=== PATIENT | female | born 1995 | race Caucasian/White ===

== ENCOUNTER 2020-03-04 14:44 | Emergency (ER) | payer OTHER ==
[~2020-03-04] VITALS: Ht 154.9 cm; Wt 61.2 kg
[2020-03-04 15:03] VITALS: BP 107/77
[2020-03-04] MEDS ORDERED: TETANUS,DIPTH,PERTUSS P/F (BOOSTRIX) 0.5 ML VIAL IM ONE (15:15)
[2020-03-04] MEDS ORDERED: LIDOCAINE 1% INJ 20 ML 20 ML VIAL INJ ONE (15:15)
--- NOTE | 2020-03-04 15:15 | ED Upper Extremity ---
General Chief Complaint: Laceration Stated Complaint: L HAND LACERATION Source: patient Exam Limitations: no limitations History of Present Illness Date Seen by Provider: Mar 04, 2020 Time Seen by Provider: 15:05 Initial Comments Patient is a 24-year-old female who presents to the emergency department today with a chief complaint of hand laceration. Patient states that she was using a steak knife and cut her left hand with it. Patient is right-hand dominant. patient had immediate pain and bleeding. She denies any loss of function to her hand. She has no complaints of any other injuries. Unknown last tetanus shot. Onset: just prior to arrival Pain/Injury Location: left hand Method of Injury: incised Allergies and Home Medications Allergies Coded Allergies: No Known Drug Allergies (Unverified , 03/04/20) Patient Home Medication List Home Medication List Reviewed: Yes Review of Systems Constitutional: no symptoms reported EENTM: no symptoms reported Respiratory: no symptoms reported Cardiovascular: no symptoms reported Gastrointestinal: no symptoms reported Musculoskeletal: no symptoms reported Skin: other (Laceration to left hand) Past Egvjckp-Xvxbsy-Lhgchn Hx Patient Social History Recent Foreign Travel: No Contact w/Someone Who Travel: No Physical Exam Vital Signs Vital Signs - First Documented 03/04/20 15:03 Pulse 96 Resp 16 B/P (MAP) 107/77 (87) Pulse Ox 99 O2 Delivery Room Air Capillary Refill : Height, Weight, BMI Height: '" Weight: lbs. oz. kg; BMI Method: General Appearance: WD/WN, no apparent distress Cardiovascular: regular rate, rhythm Respiratory: lungs clear, normal breath sounds Shoulder: normal inspection Elbow/Forearm: normal inspection Wrist: Yes normal inspection Hand: Left, laceration (3 cm superficial laceration at the base of the index finger with active bleeding noted) Neurologic/Psychiatric: voice over announcer II-XII nml as tested, no motor/sensory deficits, alert, normal mood/affect, oriented x 3 Skin: normal color, warm/dry Procedures/Interventions Wound Location: Upper Extremities (left hand) Wound Length (cm): 3 Wound's Depth, Shape: superficial Wound Explored: clean Irrigated w/ Saline (ccs): 10 Betadine Prep?: No Anesthesia: 1% Lidocaine Volume Anesthetic (ccs): 2 Suture: Prolene (5-0) Suture Size: 5-0 Other Closure Supply: Wound Adhesive Number of Sutures: 2 Sterile Dressing Applied?: Yes Progress/Results/Core Measures Results/Orders My Orders Orders - BINU VANG MD Lidocaine 1% Inj 20 Ml (Xylocaine 1% Inj (03/04/20 15:15) Dipht,Pertuss(Acell),Tet Adult (Boostrix (03/04/20 15:15) Medications Given in ED Current Medications Medications Dose Ordered Sig/Gómez Route Start Time Stop Time Status Last Admin Dose Admin Diphtheria/ Tetanus/Acell Pertussis 0.5 ml ONCE ONCE IM 03/04/20 15:15 03/04/20 15:16 DC 03/04/20 15:24 0.5 ML Lidocaine HCl 20 ml ONCE ONCE INJ 03/04/20 15:15 03/04/20 15:16 DC 03/04/20 15:24 20 ML Vital Signs/I&O 03/04/20 15:03 Pulse 96 Resp 16 B/P (MAP) 107/77 (87) Pulse Ox 99 O2 Delivery Room Air Departure Impression Primary Impression: Laceration of hand Qualified Codes: S61.412A - Laceration without foreign body of left hand, initial encounter Disposition: 01 HOME, SELF-CARE Condition: Stable Departure-Patient Inst. Patient Instructions: Laceration Repair With Stitches (DC) Add. Discharge Instructions: Keep the wound clean dry and covered. Do not submerge the wound in water for at least 48hours. The stitches will need to come out in 10 days. Watch for redness, swelling, drainage and return to the ER if any of these things happen. BINU VANG MD Mar 04, 2020 15:15
== END 2020-03-04 15:49 | disposition home or self-care (01) ==
LOC: ER 14:49
DX: S61.211A Laceration without foreign body of left index finger without damage to nail, initial encounter (principal); Z23 Encounter for immunization; W26.0XXA Contact with knife, initial encounter
CPT/HCPCS: 12001; 90715

== ENCOUNTER → 2021-12-26 | Outpatient (CLI) | payer BC, OTHER ==
--- NOTE | 2021-12-26 12:01 | Diagnostic Imaging Report ---
INDICATION: Abdominal pain with constipation and distention. FINDINGS: Upright and supine abdomen. The lung bases are clear. There is no free air noted under the diaphragm. No distended bowel loops or air-fluid levels. There is not a significant amount of stool present within the colon. No organomegaly or pathologic calcification. No bony abnormalities. IMPRESSION: Normal upright and supine abdomen. No evidence of bowel obstruction or constipation. Dictated by: Dictated on workstation # [id number]
== END ==
LOC: RAD 08:41
PROVIDERS: ATTEND Nurse Practitioner Family
DX: K59.09 Other constipation (principal)
CPT/HCPCS: 74019

== ENCOUNTER 2022-09-26 05:32 | Outpatient (CLI) | payer BC ==
[~2022-09-26] VITALS: Ht 154.9 cm; Wt 74.1 kg
[2022-09-26] MEDS ORDERED: SERT50TA2 PO (14:08)
[2022-09-26] MEDS ORDERED: LEVO25CA4 PO (14:08)
== END 2022-09-26 14:36 | disposition home or self-care (01) ==
LOC: PREOP 05:32
PROVIDERS: ATTEND Obstetrics & Gynecology
DX: Z01.818 Encounter for other preprocedural examination (principal)

== ENCOUNTER 2022-09-29 06:01 | Day surgery (SDC) | payer BC ==
[~2022-09-29] VITALS: Ht 154.9 cm; Wt 74.1 kg
[2022-09-29] VITALS (9 sets, daily range): BP systolic 98–107; BP diastolic 58–81
[~2022-09-29 06:01] MED LIST: LEVO25CA4 PO; SERT50TA2 PO
[2022-09-29] MEDS ORDERED: LACTATED RINGERS 1,000 ML IV PRN (06:15)
[2022-09-29] MEDS ORDERED: MIDAZOLAM 2 MG/2 ML (VERSED) VIAL IVP ONE (06:45)
[2022-09-29] MEDS ORDERED: ONDANSETRON 4 MG/2 ML (SDV) Z0FRAN IVP ONE (06:45)
[2022-09-29] MEDS ORDERED: MIDAZOLAM 2 MG/2 ML (VERSED) VIAL ONE (06:46)
[2022-09-29] MEDS ORDERED: ONDANSETRON 4 MG/2 ML (SDV) Z0FRAN ONE ×2 (06:47→06:56)
[2022-09-29 06:51] LABS: BASOPHILS % (AUTO) 0 % (0-10); EOSINOPHILS # (AUTO) 0.2 10^3/uL (0.0-0.3); EOSINOPHILS % (AUTO) 2 % (0-10); HEMATOCRIT 35 % (35-52); HEMOGLOBIN 12.6 g/dL (11.5-16.0); LYMPHOCYTES # (AUTO) 1.9 10^3/uL (1.0-4.0); LYMPHOCYTES % (AUTO) 26 % (12-44); MEAN CORPUSCULAR HEMOGLOBIN 33 pg (25-34); MEAN CORPUSCULAR HGB CONC 36 g/dL (32-36); MEAN CORPUSCULAR VOLUME 90 fL (80-99); MEAN PLATELET VOLUME 9.6 fL (9.0-12.2); MONOCYTES # (AUTO) 0.4 10^3/uL (0.0-1.0); MONOCYTES % (AUTO) 6 % (0-12); NEUTROPHILS # (AUTO) 4.8 10^3/uL (1.8-7.8); NEUTROPHILS % (AUTO) 66 % (42-75); PLATELET COUNT 190 10^3/uL (130-400); WHITE BLOOD COUNT 7.3 10^3/uL (4.3-11.0)
[2022-09-29] MEDS ORDERED: proPOfol 200 MG/20 ML (DIPRIVAN) VIAL IV ONE ×2 (06:56→07:43)
[2022-09-29] MEDS ORDERED: fentaNYL INJ 100 MCG/2 ML AMP ONE (06:56)
[2022-09-29] MEDS ORDERED: LIDOCAINE PF 2% 5 ML (XYLOCAINE) VIAL ONE (06:56)
[2022-09-29] MEDS ORDERED: ONDANSETRON 4 MG/2 ML (SDV) Z0FRAN IV ONE (07:00)
[2022-09-29] MEDS ORDERED: MIDAZOLAM 2 MG/2 ML (VERSED) VIAL IV ONE (07:00)
--- NOTE | 2022-09-29 07:28 | Progress Note-Pre Operative ---
Pre-Operative Progress Note Date of Available H&P: September 29, 2022 Date H&P Reviewed: September 29, 2022 Time H&P Reviewed: 07:15 History & Physical: H&P Reviewed, Patient Examed, No changes noted Pre-Operative Diagnosis: Missed QIAN Wellington DO September 29, 2022 07:28
[2022-09-29] MEDS ORDERED: KETOROLAC 30 MG/ML VIAL IVP ONE (07:30)
[2022-09-29] MEDS ORDERED: D5 LR IV SOLUTION 1,000 ML IV SCH (07:30)
[2022-09-29] MEDS ORDERED: HYDROcodone/APAP 5 MG/325 MG (LORTAB) TAB PO PRN (07:30)
[2022-09-29] MEDS ORDERED: ONDANSETRON 4 MG/2 ML (SDV) Z0FRAN IVP PRN ×2 (07:30→08:00)
--- NOTE | 2022-09-29 07:30 | Discharge Inst-Women's Service ---
Discharge Inst-Women's Serv Depart Medication/Instructions New, Converted or Re-Newed RX: Transmitted to Pharmacy Problems Reviewed?: Yes Consults/Follow Up Additional Follow Up: Yes Orders/Referrals Dr. Palma in 2 weeks Activity Activity: Activity as Tolerated Driving Instructions: No Driving for 1 Week NO SMOKING: NO SMOKING Nothing Inside Vagina: No Douching, No Piggott, No Tampons Diet Discharge Diet: No Restrictions Symptoms to Report to : Bleeding Excessive, Pain Increased, Fever Over 101 Degrees F, Vaginal Bleeding Increase, Questions/Concerns For Any Problems or Questions: Contact Your Physician QIAN PALMA DO September 29, 2022 07:30
[2022-09-29] MEDS ORDERED: IBUP-1773 PO (07:31)
[2022-09-29] MEDS ORDERED: ACHD5005 PO (07:31)
[2022-09-29] MEDS ORDERED: morphine INJ 10 MG/ML 1ML (SYR OR VIAL) IVP ONE (08:00)
[2022-09-29] MEDS ORDERED: SEVOFLURANE (ULTANE) 15 ML INHAL SOLN ONE (08:00)
--- NOTE | 2022-09-29 08:19 | Anesthesia-General Post-Op ---
General Patient Condition Mental Status/LOC: Same as Preop Cardiovascular: Satisfactory Nausea/Vomiting: Absent Respiratory: Satisfactory Pain: Controlled Complications: Absent Post Op Complications Complications None Follow Up Care/Instructions Patient Instructions None needed. Anesthesia/Patient Condition Patient Condition Patient is awake in PACU and doing well, no complaints, stable vital signs, no apparent adverse anesthesia problems. No complications reported per nursing. ALBERTO BEAR DO September 29, 2022 08:19
--- NOTE | 2022-09-29 17:14 | OPERATIVE REPORT ---
DATE OF SERVICE: 09/29/2022 PREOPERATIVE DIAGNOSIS: A 26-year-old female with missed . POSTOPERATIVE DIAGNOSIS: A 26-year-old female with missed . PROCEDURE: Suction D and C. SURGEON: Qian Palma DO ANESTHESIA: LMA general. ESTIMATED BLOOD LOSS: 200 mL URINE OUTPUT: 15 mL drained at the start of the procedure. FLUIDS: 800 mL lactated Ringer's solution. FINDINGS: Moderate amount of products of conception. Grossly normal-appearing external female genitalia, normal-appearing vagina and cervix. SPECIMEN SENT: Products of conception. INDICATIONS FOR PROCEDURE: This is a 26-year-old female was a patient who had sought care in my office. She had a finding of a missed AB at that first appointment. 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 She has sought care at [facility] in [place] prior to this and had positive viability at 7 weeks; however, now she was supposed to be 9 weeks and the fetus was measuring 8 weeks. I discussed with the patient conservative management, waiting for spontaneous miscarriage. The patient opted to proceed with manual extraction and suction D and C. Risks of the procedure were discussed with the patient in detail. We also discussed sending for Genetics as this is the fourth miscarriage in a row. She wished to do that and therefore, the specimen today was sent on fresh and not fixed in formalin. After all of her questions were answered, consent was obtained, the patient was taken to the operating room. OPERATIVE DESCRIPTION IN DETAIL: Once in the operating room, anesthesia was administered and found to be adequate, was placed in dorsal lithotomy position, prepped and draped in normal sterile fashion. A timeout was performed. A weighted speculum inserted to the patient's vagina. Ring retractor was used to visualize the cervix, was grasped at 12 o'clock position using a long Allis clamp. I then gently sound the uterine cavity, depth sounded to be 10 cm. I then gently dilated cervix using Hanks dilators to maximum dilatation of 1 cm. I then selected a #10 Cliff suction curette, was advanced into the uterus with the suction is applied, 70 mmHg is applied via the Socorro suction device and then the uterus was cleared of all endometrial products of conception by gently rotating and curetting the endometrial cavity using the Cliff suction curette. This was done on several different passes. I then gently curettage using a sharp curettage of the endometrium to ensure no residual tissue is left behind and make 1 final pass with the Socorro suction device after which there is little to no bleeding noted from the cervix. I removed all instruments from the patient's vagina. The patient tolerated the procedure well and was taken to recovery in stable condition. Lap and sponge counts were correct at the end of the procedure. Instrument instrument counts correct as well. 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
== END 2022-09-29 09:01 | disposition home or self-care (01) ==
LOC: SDC 06:01
PROVIDERS: ATTEND Obstetrics & Gynecology
DX: O02.1 Missed abortion (principal)
CPT/HCPCS: 36415; 85025; 86850; 86900; 86901; 87081